=== PATIENT | female | born 1940 | race Caucasian/White ===

== ENCOUNTER 2020-09-29 13:53 | Outpatient (REF) | payer MEDICARE, SELFPAY ==
--- NOTE | ~2020-09-29 | MM_ITS ---
EXAMINATION: MM SCREENING DIGITAL BREAST TOMOSYNTHESIS, BILATERAL CLINICAL INFORMATION: Screening. Asymptomatic. No known family history breast cancer. The lifetime risk of breast cancer based on the Tyrer-Cuzick Model is 3%. COMPARISON: Mammography: 09/07/2019, 6 09/02/2018, 08/06/2017, 07/24/2016 TECHNIQUE: Digital breast tomosynthesis is performed in both the craniocaudal and mediolateral oblique views along with computer-aided detection (CAD). Synthesized 2D images are generated from the tomosynthesis. Additional left MLO view is provided. FINDINGS: The breasts are extremely dense, which lowers the sensitivity of mammography (ACR BI-RADS breast composition Category d). The breasts are slightly symmetrically smaller and slightly symmetrically increased in density consistent with mild weight loss. Parenchymal pattern is otherwise similar to prior studies. There is no significant mass or architectural abnormality. No abnormal calcifications. The axilla and skin contours are unremarkable. Results discussed with patient at time of visit. MM/MM tomosynthesis screening BI IMPRESSION: No mammographic evidence of malignancy. ASSESSMENT: BI-RADS 2: Benign RECOMMENDATION: Routine annual mammography screening. This patient's information was entered into a reminder system with a target due date for their next mammogram.
== END 2020-09-29 13:54 | disposition home or self-care (01) ==
LOC: HO.MAMMO 13:53
PROVIDERS: PCP Internal Medicine; Visit Provider Internal Medicine
DX: Z12.31 Encounter for screening mammogram for malignant neoplasm of breast (principal)
CPT/HCPCS: 77063; 77067

== ENCOUNTER 2021-10-17 11:00 | Outpatient (REF) | payer MEDICARE, SELFPAY ==
--- NOTE | ~2021-10-17 | MM_ITS ---
EXAMINATION: MM SCREENING DIGITAL BREAST TOMOSYNTHESIS, BILATERAL CLINICAL INFORMATION: Screening. Asymptomatic. The lifetime risk of breast cancer based on the Tyrer-Cuzick Model is 2%. COMPARISON: Mammography: 09/29/2020, 09/07/2019, 09/02/2018, 08/06/2017 TECHNIQUE: Digital breast tomosynthesis is performed in both the craniocaudal and mediolateral oblique views along with computer-aided detection (CAD). Synthesized 2D images are generated from the tomosynthesis. FINDINGS: The breasts are extremely dense, which lowers the sensitivity of mammography (ACR BI-RADS breast composition Category d). Breast parenchymal pattern is similar to prior studies. There is some minor shifting fibroglandular tissue as expected related to positioning from year to year. There is no interval mass or architectural abnormality. No abnormal calcifications. The axilla and skin contours are unremarkable. Results are reviewed with the patient at time of visit. MM/MM tomosynthesis screening BI IMPRESSION: No mammographic evidence of malignancy. ASSESSMENT: BI-RADS 1: Negative RECOMMENDATION: Routine annual mammography screening. This patient's information was entered into a reminder system with a target due date for their next mammogram.
== END 2021-10-17 11:01 | disposition home or self-care (01) ==
LOC: HO.MAMMO 11:00
PROVIDERS: PCP Internal Medicine; Visit Provider Internal Medicine
DX: Z12.31 Encounter for screening mammogram for malignant neoplasm of breast (principal)
CPT/HCPCS: 77063; 77067

== ENCOUNTER 2022-10-21 08:50 | Outpatient (REF) | payer MEDICARE, SELFPAY ==
--- NOTE | ~2022-10-21 | MM_ITS ---
EXAMINATION: MM SCREENING DIGITAL BREAST TOMOSYNTHESIS, BILATERAL CLINICAL INFORMATION: Screening. Asymptomatic. The lifetime risk of breast cancer based on the Tyrer-Cuzick Model is 2%. COMPARISON: Mammography: 10/17/2021, 09/29/2020, and exams dating back to 2012. TECHNIQUE: Digital breast tomosynthesis is performed in both the craniocaudal and mediolateral oblique views along with computer-aided detection (CAD). Synthesized 2D images are generated from the tomosynthesis. FINDINGS: The breasts are extremely dense, which lowers the sensitivity of mammography (ACR BI-RADS breast composition Category d). There are no suspicious masses, suspicious calcifications, or areas of architectural distortion. The parenchymal pattern is overall unchanged from prior exams. Tomographic imaging is unremarkable. MM/MM tomosynthesis screening BI IMPRESSION: No mammographic evidence of malignancy. ASSESSMENT: BI-RADS BI-RADS 1 - Negative RECOMMENDATION: Routine annual mammography screening. 1 year F/U This examination should not preclude the clinical evaluation of a suspicious palpable abnormality. This patient's information was entered into a reminder system with a target due date for their next mammogram.
== END 2022-10-21 08:51 | disposition home or self-care (01) ==
LOC: HO.MAMMO 08:50
PROVIDERS: Visit Provider Internal Medicine
DX: Z12.31 Encounter for screening mammogram for malignant neoplasm of breast (principal)
CPT/HCPCS: 77063; 77067

== ENCOUNTER → 2022-10-21 09:00 | Outpatient (BNV) | payer MEDICARE, SELFPAY | PROVIDERS: Visit Provider Radiology Diagnostic Radiology | DX: Z12.31 Encounter for screening mammogram for malignant neoplasm of breast (principal) | CPT/HCPCS: 77063; 77067 ==

== ENCOUNTER 2023-10-29 08:16 | Outpatient (REF) | payer MEDICARE, SELFPAY ==
--- NOTE | ~2023-10-29 | MM_ITS ---
EXAMINATION: MM SCREENING DIGITAL BREAST TOMOSYNTHESIS, BILATERAL CLINICAL INFORMATION: Screening. Asymptomatic. History of left breast excisional benign biopsies x2. COMPARISON: Mammography: 10/21/2022, 10/17/2021, 09/29/2020, and exams dating back to 2013. TECHNIQUE: Digital breast tomosynthesis is performed in both the craniocaudal and mediolateral oblique views along with computer-aided detection (CAD). Synthesized 2D images are generated from the tomosynthesis. FINDINGS: The breasts are extremely dense, which lowers the sensitivity of mammography (ACR BI-RADS breast composition Category d). There are no suspicious masses, suspicious grouped calcifications, or areas of architectural distortion in either breast. The parenchymal pattern is stable from prior exams. There is no skin or axillary abnormality. MM/MM tomosynthesis screening BI IMPRESSION: No mammographic evidence of malignancy. ASSESSMENT: BI-RADS BI-RADS 1 - Negative RECOMMENDATION: Routine annual mammography screening. 1 year F/U This examination should not preclude the clinical evaluation of a suspicious palpable abnormality. This patient's information was entered into a reminder system with a target due date for their next mammogram. Electronically signed by: Paul Barba MD 10/29/2023 01:01 PM EDT
== END 2023-10-29 08:17 | disposition home or self-care (01) ==
LOC: HO.MAMMO 08:16
PROVIDERS: PCP Internal Medicine; Visit Provider Internal Medicine
DX: Z12.31 Encounter for screening mammogram for malignant neoplasm of breast (principal)
CPT/HCPCS: 77063; 77067

== ENCOUNTER → 2023-10-29 08:30 | Outpatient (BNV) | payer MEDICARE, SELFPAY | PROVIDERS: PCP Internal Medicine; Visit Provider Radiology Diagnostic Radiology | DX: Z12.31 Encounter for screening mammogram for malignant neoplasm of breast (principal) | CPT/HCPCS: 77063; 77067 ==

== ENCOUNTER 2024-11-20 08:23 | Outpatient (REF) | payer MEDICARE, SELFPAY ==
--- OUTSIDE RECORDS SUMMARY | 2011-10-08 | XMS_ITS | Encounter Summary ---
Author Organization [facility] Address [address] [place] [address] Phone Care Team Providers Care Machine Setter Sheet Metal Name Role Phone Unavailable Primary Care Provider Unavailabl e Encounter Details Date Type Department Care Team (Late st Contact Info) Description 10/08/2011 Hospital Encounter [facility],Outside Imaging [address] [place] [address] System, Provider Not In, PhD [address] [address] Social History Tobacco Use Types Packs/Day Years Used Date Smoking Tobacco: Never Smokeless Tobacco: Never Alcohol Use Standard Drinks/Week Comments Not Currently 0 (1 standard drink = 0.6 oz pur e alcohol) Child or Family Care Answer Date Record ed Do you have problems with on e of the following making it difficult for you to work, study, or receive health care? No 05/30/2021 Education Answer Date Recorded Are you interested in more education? Not on gladys e 06/01/2023 Are you concerned about learning? Not on file 06/01/2023 No 06/01/2023 No 06/01/2023 Food Answer Date Recorded Within the past 6 months we worried whether our food would run out before we got money to buy more. Never True 05/30/2021 Within the past 6 months the food we bought just didn't last and we didn't have enough money to get more. Never True Residential Stability Answer Date Recor ded What is your housing situation today? I have susana farris 05/30/2021 How many times have you moved in the past 12 mon ths? One time 05/30/2021 Paying for Meds Answer Date Recorded Do you have trouble paying for medicines? No 05/30/2021 Paying Utility Bills Answer Date Record ed Do you have trouble paying your heating or elect ricity bill? No 05/30/2021 Transportation Answer Date Recorded Has the lack of transportati on kept you from medical appointments or from getting medications? No 05/30/2021 Unemployment Answer Date Recorded Are you currently unemployed or working on a part-time or temporary basis, and looking for work? No 05/30/2021 Digital Access Answer Date Recorded No 08/05/2022 No 08/05/2022 Reliable internet access at home? Not on file 08/05/2022 Device with a working camera? Not on file Intimate Partner Violence Answer Date R ecorded Denied Basic Needs Not on file 06/16/2024 In the past 12 months have y ou been in a relationship with a person who hurts, threatens, or tries to control you? No 06/16/2024 Worried food would run out Not on file 06/16 In the past 12 months have y ou been in a relationship with a person who hurts, threatens, or tries to control you? No 06/16/2024 Education Answer Date Recorded What is the highest level of school you have completed or the highest degree you have received? Doctorate 03/15/2018 Comments No Sex and Gender Information Value Date Recorded Sex Assigned at Not on file Legal Sex Female 3:00 PM EST Gender Identity Not on file Sexual Orientation Not on file Occupation Industry Job Start Date Job End Date retired Not on file Not on file Not on file documented as of this encounter Plan of Treatment Not on file documented as of this encounter Procedures Procedure Name Priority Date/Time Associated Diagnosis Comments CT ABDOMEN/PELVIS OUTSIDE (NO INTERPRETATION) Routine 10/08/2011 12:00 AM EDT documented in this encounter Results * CT Abdomen/Pelvis Outside (No Interpretation) (10/08/2011 12:00 AM EDT) Narrative SYSTEMGENERATED, DOCUMENTATION - 05/15/2020 1:50 PM EST This study is for PACS storage only and not for interpretation. us Provider Not In System PhD IMG OUTSIDE IMAGING W /OUT INTERPRETATION Final Result documented in this encounter Visit Diagnoses Not on filedocumented in this encounter Additional Health Concerns Infection Onset Date Last Indicated Resolved Time CoV-Exposed Comment:Recent close contact 02/25/2020 02/25/2020 03/10/2020 1:24 AM EST CoV-Exposed Comment:Recent close contact documented in the COVID-19 PCR/PRO order 03/07/2021 03/09/2021 03/22/2021 1:[address] documented as of this encounter Additional Source Comments The information contained in this document represents components of the legal health record. It is not the complete legal health record.[facility]
--- NOTE | ~2024-11-20 | MM_ITS ---
EXAMINATION: MM SCREENING DIGITAL BREAST TOMOSYNTHESIS, BILATERAL CLINICAL INFORMATION: Screening. Asymptomatic. COMPARISON: Mammography: Comparison is made with available priors TECHNIQUE: Digital breast mammography with tomosynthesis is performed in both the craniocaudal and mediolateral oblique views along with computer-aided detection (CAD). FINDINGS: The breasts are extremely dense, which lowers the sensitivity of mammography (ACR BI-RADS breast composition Category d). Bilateral Excisional biopsies. There are no significant masses, abnormal calcifications, or other abnormalities. MM/MM tomosynthesis screening BI IMPRESSION: No mammographic evidence of malignancy. ASSESSMENT: BI-RADS BI-RADS 2 - Benign Findings RECOMMENDATION: Routine annual mammography screening. 1 year F/U This examination should not preclude the clinical evaluation of a suspicious palpable abnormality. This patient's information was entered into a reminder system with a target due date for their next mammogram. Electronically signed by: Lexi Craven DO 11/22/2024 09:54 AM EDT
--- OUTSIDE RECORDS SUMMARY | 2024-11-20 08:27 | XMS_ITS | Encounter Summary ---
Author Organization [employer] [facility] Address [address] [place] [address] Phone Care Team Providers Care Medical Research Tech Name Role Phone Jeffrey Sung MD Unavailable [phone] Adam Klein MD Unavailable [phone] Francisco Javier Holcomb MD Unavailable [phone] Adelso Anderson MD Unavailable [phone] Marco Antonio Noriega MD Unavailable Unavailable Trisha Hubbard MD Primary Care Provider [phone] Trisha Hubbard MD Unavailable [phone] Encounter Details Date Type Department Care Team (Late st Contact Info) Description 12/27/2019 Procedure Pass [facility], Ct Scan - [address] [address] Social History Tobacco Use Types Packs/Day Years Used Date Smoking Tobacco: Never Smokeless Tobacco: Never Alcohol Use Standard Drinks/Week Comments Not Currently 0 (1 standard drink = 0.6 oz pur e alcohol) Education Answer Date Recorded What is the [...] on file documented as of this encounter Visit Diagnoses Not on filedocumented in this encounter Additional Health Concerns Infection Onset Date Last Indicated Resolved Time CoV-Exposed Comment:Recent close contact 02/25/2020 02/25/2020 03/10/2020 1:24 AM EST CoV-Exposed Comment:Recent close contact documented in the COVID-19 PCR/PRO order 03/07/2021 03/09/2021 03/22/2021 1:[address] Assessment Noted Time PHQ-2 Depression Total Score: 0 10/22/19 8:42 AM EDT documented as of this encounter Care Teams Medical Research Tech Relationship Specialty Start Date End Date Trisha Hubbard MD [address] [place] [address] PCP - General Internal Medicine 03/17/18 Jeffrey Sung MD [address] [place] [address] Historical LMR Provider 12/25/16 2 Adam Klein MD [address] [address] Historical LMR Provider 12/25/16 03/17/21 Francisco Javier Holcomb MD [address] [place] [address] Historical LMR Provider 12/25/16 2 Adelso Anderson MD [address] [place] [address] [place] [address] Gastroenterology 03/15/18 Marco Antonio Noriega MD Ophthalmology 03/15/18 Trisha Hubbard MD [address] [place] [address], [address] [place] [address] [email or web address] Insurance Assigned Provider 06/14/23 documented as of this encounter Additional Source Comments The information contained in this document represents components of the legal health record. It is not the complete legal health record.[facility]
--- OUTSIDE RECORDS SUMMARY | 2024-11-20 08:27 | XMS_ITS | Encounter Summary ---
Author Organization [facility] Address [address] [place] [address] Phone Care Team Providers Care Corrosion Control Specialist Name Role Phone Jeffrey Sung MD Unavailable [phone] Adam Klein MD Unavailable [phone] Francisco Javier Holcomb MD Unavailable [phone] Adelso Anderson MD Unavailable Marco Antonio Noriega MD Unavailable Unavailable Trisha Hubbard MD Primary Care Provider [phone] Trisha Hubbard MD Unavailable [phone] Encounter Details Date Type Department Care Team (Late st Contact Info) Description 12/22/2019 Procedure Pass [facility] Endoscopy Admitting Dept Virtual Department [address] [place] [address] Social History Tobacco Use Types Packs/Day Years [...] PCR/PRO order 03/07/2021 03/09/2021 03/22/2021 1:22 AM EST Assessment Noted Time PHQ-2 Depression Total Score: 0 10/22/19 8:42 AM EDT documented as of this encounter Care Teams Corrosion Control Specialist Relationship Specialty Start Date End Date Trisha Hubbard MD [address] [place] [address] PCP - General Internal Medicine 03/17/18 Jeffrey Sung MD [address] [place] [address] Historical LMR Provider 12/25/16 2 Adam Klein MD [address] [address] Historical LMR Provider 12/25/16 03/17/21 Francisco Javier Holcomb MD [address] [place] [address] Historical LMR Provider 12/25/16 2 Adelso Anderson MD [address] [place] [address] [place] [address] Gastroenterology 03/15/18 Marco Antonio Noriega MD Ophthalmology 03/15/18 Trisha Hubbard MD [address] [place] [address], [address] [place] [address] [email or web address] Insurance Assigned Provider 06/14/23 documented as of this encounter Additional Source Comments The information contained in this document represents components of the legal health record. It is not the complete legal health record.[facility]
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
--- OUTSIDE RECORDS SUMMARY | 2024-11-20 08:28 | XMS_ITS | Encounter Summary ---
Author Organization [employer] [facility] Address [address] [place] [address] Phone Care Team Providers Care Safety Tech Name Role Phone Jeffrey Sung MD Unavailable [phone] Adam Klein MD Unavailable [phone] Francisco Javier Holcomb MD Unavailable [phone] Adelso Anderson MD Unavailable [phone] Marco Antonio Noriega MD Unavailable Unavailable Trisha Hubbard MD Primary Care Provider [phone] Trisha Hubbard MD Unavailable [phone] Reason for Referral * MRI/CAT Scan - Closed Specialty Diagnoses / Procedures Referred By Ketan t Referred To Contact Radiology Diagnoses Sudden hearing loss, left Procedures MRI Brain River Gupta MD Phone: tel: fax: [email or web address] Referral ID Status Reason Start Date Expiration Date Visits Re quested Visits Authorized [id number] Closed 10/11/2020 10/11/2021 4 4 Encounter Details Date Type Department Care Team (Late st Contact Info) Description 10/11/2020 Ancillary Orders Virtual Department [address] [place] [address] River Gupta MD [address], [address] [place] [address] [email or web address] Sudden hearing loss, left Social History Tobacco Use Types Packs/Day Years Used Date Smoking Tobacco: Never Smokeless Tobacco: Never Alcohol Use Standard Drinks/Week Comments Not Currently 0 (1 standard drink = 0.6 oz pur e alcohol) Child or Family Care Answer Date Record ed Do you have problems with on e of the following making it difficult for you to work, study, or receive health care? No 06/04/2020 Education Answer Date Recorded Are you interested in help w ith more adult education (for example, completing high school, GED, job training, learning the Martiniquais language, technical skills, or developing parenting skills)? No 06/04/2020 Are you concerned about learning? Not on file 06/04/2020 Not on file 06/04/2020 Not on file 06/04/2020 Food Answer Date Recorded Within the past 6 months we worried whether our food would run out before we got money to buy more. Never True 06/04/2020 Within the past 6 months the food we bought just didn't last and we didn't have enough money to get more. Never True Paying for Meds Answer Date Recorded Do you have trouble paying for medicines? No 06/04/2020 Paying Utility Bills Answer Date Record ed Do you have trouble paying your heating or elect ricity bill? No 06/04/2020 Transportation Answer Date Recorded Has the lack of transportati on kept you from medical appointments or from getting medications? No 06/04/2020 Education Answer Date Recorded What is the [...] on file documented as of this encounter Results * MRI BRAIN WITH AND WITHOUT CONTRAST (10/24/2020 1:14 PM EDT) Anatomical Region Laterality Modality Head Magnetic Resonan ce 10/24/2020 1:51 PM EDT Impressions 10/24/2020 2:02 PM EDT 1. Minimal frontal white matter changes typical of small vessel disease. 2. Otherwise normal MRI appearance of the brain. POS [id number] Narrative 10/24/2020 2:02 PM EDT TECHNIQUE: 1.5 Neyda scanner. IAC protocol without and with IV contrast. No comparison FINDINGS: No evidence of acoustic neuroma or other IAC/CP angle mass. The visualized proximal cranial nerves are unremarkable. No signal changes indicative of ischemia, infarct, hemorrhage or a mass. No abnormal parenchymal or extra-axial enhancement. Few scattered tiny globular areas of T2 hyperintensity in the subcortical and periventricular white matter of both frontal lobes very likely related to the early changes of small vessel disease rather than demyelination. Normal ventricular size and configuration. Basilar cisterns widely patent. No signs of elevated intracranial pressure. No pituitary, pineal region or intraorbital pathology. Normal flow-voids in the major vessels of the [place] and the dural venous sinuses. No inflammatory changes in the paranasal sinuses or mastoid air cells. Procedure Note Nader Morin MD - 10/24/2020 TECHNIQUE: 1.5 Neyda scanner. IAC protocol without and with IVcontrast. No comparison FINDINGS: No evidence of acoustic neuroma or other IAC/CP angle mass. The visualizedproximal cranial nerves are unremarkable. No signal changes indicative of ischemia, infarct, hemorrhage or a mass. No abnormal parenchymal or extra-axial enhancement. Few scattered tiny globular areas of T2 hyperintensity in the subcorticaland periventricular white matter of both frontal lobes very likely relatedto the early changes of small vessel disease rather than demyelination. Normal ventricular size and configuration. Basilar cisterns widely patent. No signs of elevated intracranialpressure. No pituitary, pineal region or intraorbital pathology. Normal flow-voids in the major vessels of the [place] and thedural venous sinuses. No inflammatory changes in the paranasal sinuses or mastoid air cells. IMPRESSION: 1. Minimal frontal white matter changes typical of small vessel disease. 2. Otherwise normal MRI appearance of the brain. POS [id number] us River Gupta MD IMG MR HEAD/NECK Final R esult documented in this encounter Visit Diagnoses Diagnosis Sudden hearing loss, left Sudden hearing loss, left documented in this encounter Additional Health Concerns Infection Onset Date Last Indicated Resolved Time CoV-Exposed Comment:Recent close contact documented in the COVID-19 PCR/PRO order 03/07/2021 03/09/2021 03/22/2021 1:[address] Assessment Noted Time PHQ-2 Depression Total Score: 0 10/22/19 8:42 AM EDT documented as of this encounter Care Teams Safety Tech Relationship Specialty Start Date End Date Trisha Hubbard MD [address] [place] [address] PCP - General Internal Medicine 03/17/18 Jeffrey Sung MD [address] [place] [address] Historical LMR Provider 12/25/16 2 Adam Klein MD [address] [address] Historical LMR Provider 12/25/16 03/17/21 Francisco Javier Holcomb MD [address] [place] [address] Historical LMR Provider 12/25/16 2 Adelso Anderson MD [address] [place] [address] [address] [place] [address] Gastroenterology 03/15/18 Marco Antonio Noriega MD Ophthalmology 03/15/18 Trisha Hubbard MD [address] [place] [address], [address] [place] [address] [email or web address] Insurance Assigned Provider 06/14/23 documented as of this encounter Additional Source Comments The information contained in this document represents components of the legal health record. It is not the complete legal health record.[facility]
--- OUTSIDE RECORDS SUMMARY | 2024-11-20 08:28 | XMS_ITS | Patient Health Record ---
Author Organization [facility] Address [address] [place] [address] Care Team Providers Care Foam Tank Laminator Name Role Phone Trisha Hubbard M.D. Primary Care Provider Unav ailable Adelso Anderson Unavailable [phone] Allergies Allergen (clinical drug ingredient) Drug/Non Drug Allergy documented on EMR Reaction Allergy Type Onset Date Status omeprazole Prilosec Unknown Drug Allergy Active certain shampoos and soaps (uncoded) rash Allergy Active Reason For Referral No Information Medications Medication SIG (Take, Route, Frequency, Duration) Notes Start Date End Date Status Probiotic 250 MG as directed Orally o nce a day Active Vitamin D-3 2000iu 1 capsule Orally Onc e a day Active Flaxseed Oil 1200 MG as directed Orally once a day Active Colace 100 MG 1 capsule as needed Orally Once a day/ as needed Active Nystatin 879273 UNIT/ML 4 ml Mouth/Throa t TID for 30 day(s) 11/04/2018 Active Prilosec 20 MG 1 Orally Once or twi ce a day for reflux for 10 day(s) 07/02/2019 Active Vitamin C11-Ivgyx Acid 500-400 MCG Orally Active Cranberry Extract 200 MG as directed Ora lly once a day Active Zantac 75 75 MG 1 tablet as needed O rally Twice a day/prn Active Immunizations Vaccine Route Administration Date Status Comme nts Influenza Unknown 10/15/2016 Administered Influenza Unknown 10/30/2018 Administered Social History Alcohol Screen Question Answer Notes Did you have a drink containing alcohol in the p ast year? No Points 0 Interpretation Negative Section Notes: Nonsmoker; 1 glass of red wi ne QD Nonsmoker; 1 glass of red wi ne QD Nonsmoker; 1 glass of red wi ne QD Nonsmoker; 1 glass of red wi ne QD Nonsmoker; 1 glass of red wi ne QD Nonsmoker; no sig. alcohol Nonsmoker; no sig. alcohol Nonsmoker; no sig. 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) Active confirmed Problem 80523256 Constipation, unspecified constipation type (K59.00) Active confirmed Problem 004642188 Abdominal pain, left lower quadrant (R10.32) Active confirmed Problem 86457672 Diarrhea, unspecified type (R19.7) Active confirmed Problem 34846411 Irritable bowel syndrome with both constipation and diarrhea (K58.2) Active confirmed Problem 808241672 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 confirmed Plan Of Treatment Pending Test Test Name Order Date LIVER PROFILE 09/04/2017 LIVER PROFILE 09/11/2016 LIVER PROFILE 09/12/2011 AMYLASE 09/12/2011 LIPASE 09/12/2011 FREE T4 (FT4) 09/19/2011 TSH (THYROID STIMULATING HORMONE) 2011 IRON + IBC (FE) 09/04/2017 FERRITIN 09/04/2017 CRP 09/11/2016 CBC w DIFF 09/12/2011 CBC w DIFF 09/04/2017 CBC with MANUAL DIFFERENTIAL 09/11/2016 SED RATE (ESR) 09/11/2016 PROTHROMBIN TIME (PT, INR) 09/04/2017 HEPATITIS A,B,C PROFILE 09/04/2017 CLOSTRIDIUM DIFF TOXIN A&B (C DIFF) 07/2016 STOOL WBC 09/11/2016 [id number] (A1A) 09/04/2017 MITOCHONDRIAL AB 09/04/2017 SMOOTH MUSCLE ANTIBODIES 09/04/2017 GIARDIA AG, STOOL EIA 09/11/2016 GIARDIA AG, STOOL EIA 09/12/2011 OVA & PARASITES (O&P) 09/11/2016 OVA & PARASITES (O&P) 09/12/2011 CULTURE, STOOL 09/11/2016 CT ABD & PELVIS WITH PO CONT ONLY 2011 FLUOR. ANTINUCLEAR AB SCREEN (REID) 08/09 Future Test Test Name Order Date UPPER GI ENDOSCOPY 12/27/2014 COLONOSCOPY 12/27/2014 UPPER GI ENDOSCOPY 11/04/2018 Insurance Providers Payer Name Payer Address Payer Phone Subscriber Number Group Number Insured Name Patient Relationship to Insured Coverage Start Date Coverage End Date MEDICARE OF [place] [address] [place] [address] [phone] [id number] BRENDA SUH Self - patient is the insured [employer] ATT[employer] CLAIMS [address] [place] [address] [phone] [id number] BRENDA SUH Self - patient is the insured Medical (General) History Medical History History ICD Code Irritable bowel syndrome and abdominal discomfort, with complaints dating back to the for which she underwent an upper endoscopy with Dr. Vargas in 1986. At that time he described the diagnosis of presumed irritable bowel syndrome. Back pain--- s/p fall Denies MT,DM,CVA,Lung disease,renal dise ase Herniated disc in her neck, for which marisabel alford has not had surgery Neg. colonoscopy in 1998, 27 08, and in 05/2015--diverticulosis, internal hemorrhoids Neg CT of abd/pelvis in 2011 except constipaion, and degenerative lumbar disc disease/spondylosis--no evidence of any significant intra-abdominal disease She had an upper endoscopy i november that revealed a tiny area of Paredes's mucosa, but no evidence of any dysplasia nor any significant esophagitis, gastritis, H. pylori, nor celiac disease. She had some exacerbation of her irritable bowel syndrome in 2011 after a trip to [place]-she had an acute gastroenteritis there-she had stool specimens that were negative for Giardia, but I did give her an empiric 5 day course of Flagyl in 2011 She has had a negative abdom inal ultrasounds in the past other than a small liver hemangioma EGD in 05/2015--small HH, small area of B arrett's--no dysplasia Hyponatremia-seeing Dr. Quiroz Burning mouth syndrome -has seen Dr. Gupta and an ENT MD at 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 Shay 201 6
--- OUTSIDE RECORDS SUMMARY | 2024-11-20 08:28 | XMS_ITS | Encounter Summary ---
Author Organization [facility], Address [address] [place] [address] Phone Care Team Providers Care Book Canvasser Name Role Phone Trisha Hubabrd MD Primary Care Provider [phone] Encounter Details Date Type Department Care Team (Late st Contact Info) Description 04/13/2024 Documentation Only [facility] [address] [place] [address] Leslie Li [address] [place] [address] Social History Tobacco Use Types Packs/Day Years Used Date Smoking Tobacco: Never Alcohol Use Standard Drinks/Week Comments Yes 0 (1 standard drink = 0.6 oz pur e alcohol) Comments Unknown Sex and Gender Information Value Date Recorded Sex Assigned at Not on file Legal Sex Female 4:33 PM EST Gender Identity Not on file Sexual Orientation Not on file documented as of this encounter Plan of Treatment Upcoming Encounters Date Type Department Care Team (Late st Contact Info) Description 05/23/2025 1:30 PM EDT Office Visit [facility] [address] [place] [address] Terrell Thomas MD [address] [place] [address] [place] [address] documented as of this encounter Visit Diagnoses Not on filedocumented in this encounter Care Teams Book Canvasser Relationship Specialty Start Date End Date Trisha Hubbard MD [address] [place] [address], [address] [place] [address] PCP - General 01/12/19 documented as of this encounter
--- OUTSIDE RECORDS SUMMARY | 2024-11-20 08:28 | XMS_ITS | Encounter Summary ---
Author Organization [facility], Address [address] [place] [address] Phone Care Team Providers Care Manugrapher Name Role Phone Trisha Hubbard MD Primary Care Provider [phone] Encounter Details Date Type Department Care Team (Late st Contact Info) Description 04/13/2024 Documentation Only [facility] [address] [place] [address] Leslie Li [address] [place] [address] Social History Tobacco Use Types [...] Visit [facility] [address] [place] [address] Terrell Thomas MD [address] [place] [address] [place] [address] documented as of this encounter Visit Diagnoses Not on filedocumented in this encounter Care Teams Manugrapher Relationship Specialty Start Date End Date Trisha Hubbard MD [address] [place] [address], [address] [place] [address] PCP - General 01/12/19 documented as of this encounter
--- OUTSIDE RECORDS SUMMARY | 2024-11-20 08:28 | XMS_ITS | Encounter Summary ---
Author Organization [facility], Address [address] [place] [address] Phone Care Team Providers Care Investor Relations Specialist Name Role Phone Trisha Hubbard MD Primary Care Provider [phone] Encounter Details Date Type Department Care Team (Late st Contact Info) Description 04/13/2024 Documentation Only [facility] [address] [place] [address] Leslie Li [address] [place] [address] Social History Tobacco Use Types [...] Visit [facility] [address] [place] [address] Terrell Thomas MD [address] [place] [address] [place] [address] documented as of this encounter Visit Diagnoses Not on filedocumented in this encounter Care Teams Investor Relations Specialist Relationship Specialty Start Date End Date Trisha Hubbard MD [address] [place] [address], [address] [place] [address] PCP - General 01/12/19 documented as of this encounter
--- OUTSIDE RECORDS SUMMARY | 2024-11-20 08:28 | XMS_ITS | Encounter Summary ---
Author Organization [facility] Address [address] [place] [address] Phone Care Team Providers Care Toe Stapler Name Role Phone Jeffrey Sung MD Unavailable [phone] Adam Klein MD Unavailable [phone] Francisco Javier Holcomb MD Unavailable [phone] Adelso Anderson MD Unavailable [phone] Marco Antonio Noriega MD Unavailable Unavailable Trisha Hubbard MD Primary Care Provider [phone] Trisha Hubbard MD Unavailable [phone] Encounter Details Date Type Department Care Team (Latest Contact Info) Description 12/08/2019 Transcribe Orders [address] [place] [address] Jeffrey Kent MD 10 [facility] 2 [place] [address] [email or web address] Change in bowel habits (Primary Dx) Social History Tobacco Use Types Packs/Day Years [...] documented as of this encounter Results * Immunoglobulin A (12/08/2019 10:55 AM EDT) IgA 100 70 - 400 mg/dL [facility] Blood 12/08/2019 10:5 5 AM EDT 12/08/2019 10:57 AM EDT Jeffrey Kent MD LAB BLOOD ORDERABLES Final Result Performing Organization Address [facility] de Phone Number [address] [address] * Tissue transglutaminase IgA (12/08/2019 10:55 AM EDT) TTG IGA ANTIBODY <1.2 <4.0 (Negative) U/mL [facility] Blood 12/08/2019 10:5 5 AM EDT 12/08/2019 10:57 AM EDT Jeffrey Kent MD LAB BLOOD ORDERABLES Final Result Performing Organization Address [facility] de Phone Number [facility] MED[facility] [address] [address] [place] [address] documented in this encounter Visit Diagnoses Diagnosis Change in bowel habits- Primary Other symptoms involving digestive system documented in this encounter Additional Health Concerns Infection Onset Date Last Indicated Resolved Time CoV-Exposed Comment:Recent close contact 02/25/2020 02/25/2020 03/10/2020 1:24 AM EST CoV-Exposed Comment:Recent close contact documented in the COVID-19 PCR/PRO order 03/07/2021 03/09/2021 03/22/2021 1:[address] Assessment Noted Time PHQ-2 Depression Total Score: 0 10/22/19 8:42 AM EDT documented as of this encounter Care Teams Toe Stapler Relationship Specialty Start Date End Date Trisha Hubbard MD [address] [place] [address] PCP - General Internal Medicine 03/17/18 Jeffrey Sung MD [address] [place] [address] Historical LMR Provider 12/25/16 2 Adam Klein MD [address] [place] [address] Historical LMR Provider 12/25/16 03/17/21 Francisco Javier Holcomb MD [address] [place] [address] Historical LMR Provider 12/25/16 2 Adelso Anderson MD [address] [place] [address] [place] [address] Gastroenterology 03/15/18 Marco Antonio Noriega MD Ophthalmology 03/15/18 Trisha Hubbard MD [address] [place] [address] Insurance Assigned Provider 06/14/23 documented as of this encounter Additional Source Comments The information contained in this document represents components of the legal health record. It is not the complete legal health record.[facility]
--- OUTSIDE RECORDS SUMMARY | 2024-11-20 08:28 | XMS_ITS | Encounter Summary ---
Author Organization [facility] Address [address] [place] [address] Phone Care Team Providers Care Budget Engineer Name Role Phone Unknown, Unknown Primary Care Provider Jeffrey Brown MD Primary Care Provider [phone] Jeffrey Sung MD Unavailable [phone] Adam Klein MD Unavailable [phone] Francisco Javier Holcomb MD Unavailable [phone] Adelso Anderson MD Unavailable [phone] Marco Antonio Noriega MD Unavailable Unavailable Trisha Hubbard MD Primary Care Provider [phone] Trisha Hubbard MD Unavailable [phone] Encounter Details Date Type Department Care Team (Late st Contact Info) Description 06/10/2016 Procedure Pass [facility], Main [address] [address] Social History Tobacco Use Types Packs/Day Years Used Date Smoking Tobacco: Never Alcohol Use Standard Drinks/Week Comments Yes 6 (1 standard drink = 0.6 oz pur e alcohol) Comments No Sex and Gender Information Value [...] E ST documented as of this encounter Care Teams Budget Engineer Relationship Specialty Start Date End Date Unknown, Unknown, MD PCP - General 05/30/16 10/29/16 Jeffrey Sung MD PCP - General Internal Medicine 10/30/16 03/16/18 Trisha Hubbard MD [address] [place] [address] PCP - General Internal Medicine 03/17/18 Jeffrey Sung MD [address] [place] [address] Historical LMR Provider 12/25/16 2 Adam Klein MD [address] [address] Historical LMR Provider 12/25/16 03/17/21 Francisco Javier Holcomb MD [address] [place] [address] Historical LMR Provider 12/25/16 2 Adelso Anderson MD [address] [place] [address] [address] [place] [address] Gastroenterology 03/15/18 Marco Antonio Noriega MD Ophthalmology 03/15/18 Trisha Hubbard MD [address] [place] [address], [address] [place] [address] [email or web address] Insurance Assigned Provider 06/14/23 documented as of this encounter Additional Source Comments The information contained in this document represents components of the legal health record. It is not the complete legal health record.[facility]
--- OUTSIDE RECORDS SUMMARY | 2024-11-20 08:28 | XMS_ITS | Clinical Summary ---
Author Organization [facility], Address [address] [facility] [address] [place] [address] Phone Care Team Providers Care Contract Modeler Name Role Phone Trisha Hubbard MD Primary Care Provider [phone] Allergies Active Allergy Reactions Criticality Noted Date Comments Diazepam Nausea And Vomiting 12/20/2019 Latex Hives 12/20/2019 Nitrofurantoin GI intolerance,Other (see comments) 11/07/2020 Other Rash Low 09/18/2016 Ghanaian oil Phenytoin Sodium Extended Nausea And Vomiting 0 03/15/2018 Medications cholecalciferol (VITAMIN D-3) 25 MCG (1000 UT) tablet Take 1 capsule by mouth 1 (one) time each day Active cyancobalamine (VITAMIN B-12) 500 MCG tablet Take 500 mcg by mouth 1 (one) time each day Active Probiotic Product (ALIGN PO) Take by mouth Active Cranberry (THERACRAN PO) Take by mouth A ctive FLAXSEED, LINSEED, PO Take by mouth Acti ve estradiol (ESTRACE) 0.1 MG/GM vaginal cream 1 Active Docusate Sodium (DSS) 100 MG capsule Take 100 mg by mouth if needed Active desonide (DESOWEN) 0.05 % cream Apply 1 application topically twice a day 2 Active pimecrolimus (ELIDEL) 1 % cream Apply topically twice a day 2 Active Active Problems Problem Noted Date Diagnosed Date 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 Hyponatremia 01/10/2020 Immunizations Immunization Administration Dates Next Due Influenza Split High Dose Preservative Free IM 0 11/19/2021 Influenza Vaccine, Quadrivalent, Adjuvanted 10/09 Influenza, Unspecified 12/04/2020 Pfizer SARS-COV-2 04/21/2020,03/31/2020 Pneumococcal Polysaccharide 03/10/2011 Td 03/10/2009 Tdap 03/10/2012 Zoster 06/08/2017,03/10/2010 Family History Medical History Relation Comments Cancer Child Daughter/Thyroid Heart disease Father Stroke Father Relation Status Comments Child Father Mother Social History Tobacco Use Types Packs/Day Years Used Date Smoking Tobacco: Never Alcohol Use Standard Drinks/Week Comments Yes 0 (1 standard drink = 0.6 oz pur e alcohol) Comments Unknown Sex and Gender Information Value Date Recorded Sex Assigned at Not on file Legal Sex Female 4:33 PM EST Gender Identity Not on file Sexual Orientation Not on file Last Filed Vital Signs Vital Sign Reading Time Taken Comments Blood Pressure 110/60 11/26/2018 12:00 PM EDT Pulse - - Temperature - - Respiratory Rate - - Oxygen Saturation - - Inhaled Oxygen Concentration - - Weight 45.4 kg (100 lb) 11/26/2018 12:00 PM EDT Height 157.5 cm (5' 2 ) 11/26/2018 12:00 PM EDT Body Mass Index 18.29 11/26/2018 12:00 PM EDT Plan of Treatment Upcoming Encounters Date Type Department Care Team (Late st Contact Info) Description 05/23/2025 1:30 PM EDT Office Visit [facility], [address] [place] [address] Terrell Thomas MD [address] [place] [address] [place] [address] Health Maintenance Due Date Last Done Comments Pneumococcal Vaccine: 50+ Years (2 of 2 - PCV) 03/10/2012 03/10/2011 Influenza Vaccine (#1) 2024 2, 12/04/2020, 10/29/2019 Pneumococcal Vaccine: Peds (0 to 5 Years) and At-Risk Patients (6 to 49 Years) Discontinued 03/10/2011 Hepatitis B Vaccine Aged Out No longe r eligible based on patient's age to complete this topic Insurance Medicare [facility] Care Teams Contract Modeler Relationship Specialty Start Date End Date Trisha Hubbard MD [address] [place] [address], [address] [place] [address] PCP - General 01/12/19
--- OUTSIDE RECORDS SUMMARY | 2024-11-20 08:28 | XMS_ITS | Encounter Summary ---
Author Organization [facility] Address [address] [place] [address] Phone Care Team Providers Care Nuts And Bolts Assembler Name Role Phone Jeffrey Sung MD Unavailable [phone] Adam Klein MD Unavailable [phone] Francisco Javier Holcomb MD Unavailable [phone] Adelso Anderson MD Unavailable [phone] Marco Antonio Noriega MD Unavailable Unavailable Trisha Hubbard MD Primary Care Provider [phone] Trisha Hubbard MD Unavailable [phone] Encounter Details Date Type Department Care Team (Late st Contact Info) Description 10/11/2020 Procedure Pass [facility], [address] [place] [address] Social History Tobacco Use Types Packs/Day Years [...] high school, GED, job training, learning the Bhut[place] language, technical skills, or developing parenting skills)? [...] on file documented as of this encounter Last Filed Vital Signs Vital Sign Reading Time Taken Comments Blood Pressure - - Pulse - - Temperature - - Respiratory Rate - - Oxygen Saturation - - Inhaled Oxygen Concentration - - Weight 45.4 kg (100 lb) 10/11/2020 1:13 PM EDT Height 154.9 cm (5' 1 ) 10/11/2020 1:13 PM EDT Body Mass Index 18.89 10/11/2020 1:13 PM EDT documented in this encounter Plan of Treatment Not on [...] documented as of this encounter Care Teams Nuts And Bolts Assembler Relationship Specialty Start Date End Date Trisha Hubbard MD [address] [place] [address] PCP - General Internal Medicine 03/17/18 Jeffrey Sung MD [address] [place] [address] Historical LMR Provider 12/25/162 2 Adam Klein MD [address] [address] Historical LMR Provider 12/25/16 03/17/21 Francisco Javier Holcomb MD [address] [place] [address] Historical LMR Provider 12/25/16 2 Adelso Anderson MD [address] [place] [address] [place] [address] Gastroenterology 03/15/18 Marco Antonio Noriega MD Ophthalmology 03/15/18 Trisha Hubbard MD [address] [place] [address] Insurance Assigned Provider 06/14/23 documented as of this encounter Additional Source Comments The information contained in this document represents components of the legal health record. It is not the complete legal health record.[facility]
--- OUTSIDE RECORDS SUMMARY | 2024-11-20 08:29 | XMS_ITS | Encounter Summary ---
Author Organization [facility] Address [address] [place] [address] Care Team Providers Care Subassembler Name Role Phone Physician, Pcp Unknown Primary Care Provider Perlita vailable Encounter Details Date Type Department Care Team (Late st Contact Info) Description 11/19/[address] [facility] - Main Lab [address] [place] [address] Gunnar Fung MD [address] [facility] [address] [place] [address] Gross hematuria Social History Tobacco Use Types Packs/Day Years Used Date Smoking Tobacco: Never Assessed Comments Unknown Sex and Gender Information Value Date Recorded Sex Assigned at Not on file Legal Sex Female 10:28 PM EST Gender Identity Not on file Sexual Orientation Not on file documented as of this encounter Plan of Treatment Pending Results Name Type Priority Associated Diagnoses Date /Time Non-gynecologic cytology Pathology and Cytology Routine Gross hematuria 11/10/2024 12:00 AM EDT documented as of this encounter Visit Diagnoses Diagnosis Gross hematuria documented in this encounter Care Teams Subassembler Relationship Specialty Start Date End Date Physician, Pcp Unknown PCP - General 11/10/24 documented as of this encounter
--- OUTSIDE RECORDS SUMMARY | 2024-11-20 08:29 | XMS_ITS | Encounter Summary ---
Author Organization [facility] Address [address] [place] [address] Care Team Providers Care Senior Marketing Manager Name Role Phone Physician, Pcp Unknown Primary Care Provider Perlita vailable Encounter Details Date Type Department Care Team (Late st Contact Info) Description 11/10/2024 Lab Requisition [facility] - Main Lab [address] [facility] [place] [address] Gunnar Fung MD [address] [facility] [address] [place] [address] Gross hematuria Social History Tobacco Use Types [...] cytology Pathology and Cytology Routine Gross hematuria 10/29/2024 12:00 AM EDT documented as of this encounter Visit Diagnoses Diagnosis Gross hematuria documented in this encounter Care Teams Senior Marketing Manager Relationship Specialty Start Date End Date Physician, Pcp Unknown PCP - General 11/10/24 documented as of this encounter
--- OUTSIDE RECORDS SUMMARY | 2024-11-20 08:29 | XMS_ITS | Clinical Summary ---
Author Organization [facility] Address [address] [place] [address] Phone Care Team Providers Care Hydraulic Press Operator Name Role Phone Physician, Pcp Unknown Primary Care Provider Perlita vailable Encounters Date Type Department Care Team Description 11/19/2024 Lab Requisition [facility] Lab [address] [place] [address] Gunnar Fung MD Gross hematuria 11/10/2024 Lab Requisition [facility] Lab [address] [place] [address] Gunnar Fung MD Gross hematuria from Last 3 Months Social History Tobacco Use Types Packs/Day Years Used Date Smoking Tobacco: Never Assessed Comments Unknown Sex and Gender Information Value Date Recorded Sex Assigned at Not on file Legal Sex Female 10:28 PM EST Gender Identity Not on file Sexual Orientation Not on file Plan of Treatment Health Maintenance Due Date Last Done Comments DTaP,Tdap,and Td Vaccines (1 - Tdap) 1959 Pneumococcal Vaccine: 50+ Ye ars (1 of 1 - PCV) 09/11/1991 Zoster Vaccines (1 of 2) 09/11/1991 RSV Immunization Adult Patie nts (1 - 1-dose 75+ series) 2016 Depression Screening 03/10/2024 Falls Risk Assessment 03/15/2024 Medicare Annual Wellness Visit 03/15/2024 Osteoporosis Screening (Bone Density Screening) 03/15/2024 Social Influencers of Health Screening 03/15/2024 COVID-19 Vaccine (1 - 2023-2 5 season) 2024 Influenza Vaccine (#1) 2024 HIB Vaccines Aged Out No longer eligi ble based on patient's age to complete this topic HPV Vaccines Aged Out No longer eligi ble based on patient's age to complete this topic Hepatitis A Vaccines Aged Out No long er eligible based on patient's age to complete this topic Hepatitis B Vaccines Aged Out No long er eligible based on patient's age to complete this topic IPV Vaccines Aged Out No longer eligi ble based on patient's age to complete this topic MMR Vaccines Aged Out No longer eligi ble based on patient's age to complete this topic Meningococcal ACWY Vaccine Aged Out N o longer eligible based on patient's age to complete this topic Meningococcal B Vaccine Aged Out No l onger eligible based on patient's age to complete this topic RSV Immunization Patients Un myke 20 months Aged Out No longer eligible b ased on patient's age to complete this topic Varicella Vaccines Aged Out No longer eligible based on patient's age to complete this topic Insurance MEDICARE BLUE CROSS - [place] MEDICARE ADVANTAGE Care Teams Hydraulic Press Operator Relationship Specialty Start Date End Date Physician, Pcp Unknown PCP - General 11/10/24
--- OUTSIDE RECORDS SUMMARY | 2024-11-20 08:29 | XMS_ITS | Encounter Summary ---
Author Organization [facility] Address [id number] [place] [address] Care Team Providers Care Systems Planner Name Role Phone Physician, Pcp Unknown Primary Care Provider Perlita vailable Encounter Details Date Type Department Care Team (Late st Contact Info) Description 03/15/2024 Lab Requisition [facility] [address] [facility] [place] [address] Gunnar Fung MD [address] [place] [address] Gross hematuria Social History Tobacco Use Types [...] Procedure Name Priority Date/Time Associated Diagnosis Comments AP OUTSIDE CONSULT Routine 02/27/2024 12 :00 AM EST Gross hematuria documented in this encounter Results * Anatomic pathology outside consult (02/27/2024 12:00 AM EST) Final Diagnosis Urine, Voided: Negative for high grade urothelial carcinoma. Acute inflammation present. 03/16/2024 9:56 AM EST [facility] Clinical Information Gross hematuria R31.0 [id number] urine cytology with reflex 03/16/2024 9:56 AM EST [facility] Gross Description A. Urine, Voided, : [id number] Rec'd 1 TP cyto. 03/16/2024 9:56 AM EST [facility] Disclaimer Unless otherwise specified, all tissue is 10% NB formalin fixed and paraffin embedded. Technical pathology services provided by [facility] at [address] [facility] [address], [place] [address] (CLIA #[id number]/Sudheer Voss MD, Supervisor [employer]ing [employer]) 03/16/2024 9:56 AM EST [facility] Tissue Urine specimen from urethra / Unknown 02/27/2024 03/15/2024 8:05 AM EST us Gunnar Fung MD LAB PATHOLOGY ORDERABLES Fi nal Result [facility] [address] [place] [address], documented in this encounter Visit Diagnoses Diagnosis Gross hematuria documented in this encounter Care Teams Systems Planner Relationship Specialty Start Date End Date Physician, Pcp Unknown PCP - General 11/10/24 documented as of this encounter
--- OUTSIDE RECORDS SUMMARY | 2024-11-20 08:29 | XMS_ITS | Encounter Summary ---
Author Organization [facility] Address [address] [place] [address] Phone Care Team Providers Care Spooling Machine Operator Name Role Phone Jeffrey Sung MD Unavailable [phone] Adam Klein MD Unavailable [phone] Francisco Javier Holcomb MD Unavailable [phone] Adelso Anderson MD Unavailable [phone] Marco Antonio Noriega MD Unavailable Unavailable Trisha Hubbard MD Primary Care Provider [phone] Trisha Hubbard MD Unavailable [phone] Encounter Details Date Type Department Care Team (Late st Contact Info) Description 05/15/2020 Ancillary Orders [facility],Outside Imaging [address] [place] [address] System, Provider Not In, PhD [address] [address] Social History Tobacco Use Types Packs/Day Years [...] documented as of this encounter Results * CT Abdomen/Pelvis Outside [...] Time PHQ-2 Depression Total Score: 0 10/22/19 19 8:42 AM EDT documented as of this encounter Care Teams Spooling Machine Operator Relationship Specialty Start Date End Date Trisha Hubbard MD [address] [place] [address] PCP - General Internal Medicine 03/17/18 Jeffrey Sung MD [address] [place] [address] Historical LMR Provider 12/25/16 2 Adam Klein MD [address] [place] [address] Historical LMR Provider 12/25/16 03/17/21 Francisco Javier Holcomb MD [address] [place] [address] Historical LMR Provider 12/25/16// 2 Adelso Anderson MD [address] [facility] [address] [place] [address] Gastroenterology 03/15/18 Marco Antonio Noriega MD Ophthalmology 03/15/18 Trisha Hubbard MD [address] [place] [address], [address] [place] [address] [email or web address] Insurance Assigned Provider 06/14/23 documented as of this encounter Additional Source Comments The information contained in this document represents components of the legal health record. It is not the complete legal health record.[facility]
--- OUTSIDE RECORDS SUMMARY | 2024-11-20 08:29 | XMS_ITS | Clinical Summary ---
Author Organization [facility] Address [address] [place] [address] Phone Care Team Providers Care Blasting Contract Miner Name Role Phone Adelso Anderson MD Unavailable [phone] Marco Antonio Noriega MD Unavailable Unavailable Trisha Hubbard MD Primary Care Provider [phone] Trisha Hubbard MD Unavailable [phone] Allergies Active Allergy Reactions Criticality Noted Date Comments Phenytoin Sodium Extended Nausea and/or Vomiting 03/15/2018 Latex, Natural Rubber Hives 12/20/2019 Nitrofurantoin Monohyd/M-Cryst GI Upset 11/07/2020 Nitrofurantoin Unknown 11/07/2020 Other Rash Low 09/18/2016 Norwegian oil Diazepam Nausea and/or Vomiting 12/20/2019 Medications CHOLECALCIFERO L, VITAMIN D3, ORAL Dose: Not available; Form: Not available; Route: PO; Frequency: Not available; Directions: Not available; Details: Dispense: Capsule(s); Date: 05/10/2014 5 Active CYANOCOBALAMIN , VITAMIN B-12, (VITAMIN B12 ORAL) Take 500 mg by mouth. Active Bifidobacteriu m infantis 4 mg Cap Active cranberry 500 mg Cap Take 500 MG FE by mouth. Active flaxseed oiL 1,000 mg Cap Take 1 capsule (1,000 mg total) by mouth daily. 90 capsule 3 3 Active fluticasone propionate (FLONASE) 50 mcg/actuation nasal spray 1 spray by Nasal route daily. 50 mL 3 3 Active pimecrolimus (ELIDEL) 1 % cream Apply topically 2 (two) times a day. 30 g 2 3 Active polyethylene glycol (MIRALAX) 17 gram/dose powder Take 17 g by mouth daily. 17 g 3 3 Active desonide (DESOWEN) 0.05 % creamIndicatio ns:for out breaks on the face Apply topically 2 (two) times a day. Indications: for out breaks on the face 30 g 2 3 Active estradioL (ESTRACE) 0.01 % (0.1 mg/gram) vaginal creamIndicatio ns:Menopausal vaginal dryness PLACE VAGINALLY 2 TIMES A WEEK DIRECTED 127.5 g 3 4 Active clobetasol (TEMOVATE) 0.05 % ointmentIndica tions:Menopaus al vaginal dryness APPLY TOPICALLY DAILY (VAGINALLY) 30 g 11 4 Active DENTA 5000 PLUS 1.1 % Crea BRUSH ON TEETH ONCE DAILY, SPIT BUT DO NOT RINSE 5 Active latanoprost (XALATAN) 0.005 % ophthalmic solution Place 1 drop into each eye nightly at bedtime. 5 Active sulfamethoxazo le-trimethopri m (BACTRIM DS) 800-160 mg per tablet Take 1 tablet (160 mg of trimethoprim total) by mouth 2 (two) times a day for 5 days. 10 tablet 5 11/03/19 fosfomycin (MONUROL) 3 gram PackIndication s:Urinary tract infection Take 1 packet (3 g total) by mouth once for 1 dose. 1 packet 5 11/02/19 Active Problems Problem Noted Date Diagnosed Date Chronic midline low back pain without sciatica 0 10/14/2022 Assessment & Plan (10/14/2022 11:31 AM EDT): We reviewed her CT from 2019 which shows scoliosis and degenerative changes. Advised her it is ok to continue Pilates and acupuncture. She can also take acetaminophen nightly and then take another dose when she wakes overnight. Discussed signs/symptoms that would warrant reevaluation. 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 Assessment & Plan (06/06/2022 9:53 PM EDT): Will get updated BMP. Hyponatremia 01/10/2020 Assessment & Plan (06/25/2024 4:56 PM EDT): Orders: TSH with reflex; Future Renal panel; Future Osmolality, serum; Future Sodium, random urine; Future Assessment & Plan (06/11/2023 10:19 PM EDT): This has been stable. Lumbar stenosis 10/21/2018 Tinnitus 05/13/2014 Overview (02/14/2015): Tinnitus Hearing loss 05/13/2014 Overview (02/14/2015): Hearing loss Chronic sinusitis Burning tongue Scoliosis Assessment & Plan (06/11/2023 10:24 PM EDT): She has back pain from this. Will continue to monitor. IBS (irritable colon syndrome) Assessment & Plan (06/11/2023 10:25 PM EDT): She follows with Dr. Kent for management of her IBS. Resolved Problems Problem Noted Date Diagnosed Date Resolved Date Long COVID 06/06/2022 06/11/2023 Overview (06/06/2022): Manifested by GI changes, more frequent BMs. Assessment & Plan (06/06/2022 9:55 PM EDT): Manifested with changes in bowel movement frequency. Will continue to monitor. Weight loss, abnormal 12/17/20192021 Encounters Date Type Department Care Team Description 10/28/2024 8:30 AM EDT Office Visit [facility] [address] [place] [address] Dr Blanco VERO [id number] Vishnu Briggs DO Recurrent UTI (Primary Dx) 10/27/2024 11:23 AM EDT - 10/27/2024 11:59 PM EDT Hospital Encounter [facility] [address] [place] [address] Trisha Hubbard MD Discharge Disposition: Home or Self Care 10/04/2024 10:45 AM EDT Office Visit [facility] [address] [place] [address] Nader Davila PA-C Jammed interphalangeal joint of finger of left hand, initial encounter (Primary Dx); Pain in finger of left hand 10/04/2024 10:06 AM EDT - 10/04/2024 11:59 PM EDT Hospital Encounter [address] [address] Nader Davila, JHONATAN Discharge Disposition: Home or Self Care 09/03/2024 4:00 PM EDT - 09/03/2024 11:59 PM EDT Hospital Encounter [facility] [address] [place] [address] Trisha Hubbard MD Discharge Disposition: Home or Self Care from Last 3 Months Immunizations Immunization Administration Dates Next Due COVID-19 (Pre-12/30) Pfizer Vaccine, mRNA, PF 04/21/2020,03/31/2020 Influenza High-Dose Quadriva lent Preservative Free IM 11/19/2022,11/19/2021,12/04/2020 Influenza High-Dose Trivalen t Preservative Free IM 11/24/2023,11/19/2021 Influenza Quadrivalent Adjuv anted Preservative Free IM 10/29/2019 Pneumococcal polysaccharide PPSV23 03/10/2011 RSV Vaccine (monovalent, adjuvanted) 01/02/2023 Td (adult),2 Lf Tetanus Toxo id, PF, Adsorbed 06/05/2022,03/10/2009 Tdap 03/10/2012 Zoster live 03/10/2010 Zoster recombinant 06/08/2017 Family History Medical History Relation Comments No Known Problems Brother Hearing loss Daughter 1 Sinusitis Daughter 1 Thyroid cancer Daughter 2 MRI neck picked up a nodule, localized papillary CV disease Father Coronary artery disease Father Heart attack Father Kevin's disease Maternal Grandmother Alzheimer's disease Mother Dementia Mother Osteoporosis Mother Relation Status Comments Brother Alive Daughter 1 Alive Daughter 2 Alive Daughter 3 Alive Father (Age 66) Maternal Grandmother Mother (Age 91) Social History Tobacco Use Types Packs/Day Years Used Date Smoking Tobacco: Never Smokeless Tobacco: Never Tobacco Cessation:Counseling Given: Not Answered Alcohol Use Standard Drinks/Week Comments Not Currently [...] is your housing situation today? I have susaan farris 05/30/2021 How many times have you [...] file Not on file Not on file Last Filed Vital Signs Vital Sign Reading Time Taken Comments Blood Pressure 108/62 10/28/2024 8:27 AM EDT Pulse 60 10/28/2024 8:27 AM EDT Temperature 35.9 C (96.6 F) 10/28/2024 8:27 AM EDT Respiratory Rate 16 10/06/2020 2:52 PM EDT Oxygen Saturation 96% 10/28/2024 8:27 AM EDT Inhaled Oxygen Concentration - - Weight 47.2 kg (104 lb) 10/28/2024 8:27 AM EDT S elf-report Height 154.9 cm (5' 1 ) 06/11/2023 10:31 AM EDT Body Mass Index 19.65 06/11/2023 10:31 AM EDT Plan of Treatment Health Maintenance Due Date Last Done Comments OSTEOPOROSIS SCREENING INITIAL (ONE-TIME) 2006 PNEUMOCOCCAL VACCINES (50+ years) (2 of 2 - PCV) 03/10/2012 03/10/2011 ZOSTER VACCINES (3 of 3) 08/03/2017 06/08/2017, 03/2010 INFLUENZA VACCINE (#1) 2024 , 11/19/2022, 11/19/2022, Additional history exists DEPRESSION SCREENING 06/16/2025 06/16/2024 Adult Td,Tdap Booster 06/05/2032 06/05/2022 , 03/10/2012, 03/10/2009 RSV VACCINE Completed 01/02/2023 COVID-19 VACCINE Completed 05/24/2024, , 05/12/2023, Additional history exists HEPATITIS A VACCINES Aged Out No long er eligible based on patient's age to complete this topic HIB VACCINES Aged Out No longer eligi ble based on patient's age to complete this topic MENINGOCOCCAL VACCINES (ACWY) Aged Out No longer eligible based on patient's age to complete this topic MENINGOCOCCAL VACCINES (B) Aged Out N o longer eligible based on patient's age to complete this topic Medical Devices Not on file Procedures Procedure Name Priority Date/Time Associated Diagnosis Comments URINE SEDIMENT Routine 10/27/2024 11:23 AM EDT URINALYSIS W/REFLEX URINE CULTURE Routine 10/27/2024 11:23 AM EDT Dysuria URINE CULTURE Routine 10/27/2024 11:23 AM EDT XR FINGER 2 OR MORE VIEWS (LEFT) Routine 10/04/2024 10:13 AM EDT Pain in finger of left hand URINE SEDIMENT Routine 09/03/2024 4:15 PM EDT URINALYSIS W/REFLEX URINE CULTURE Routine 09/03/2024 4:15 PM EDT Dysuria URINE CULTURE Routine 09/03/2024 4:15 PM EDT from Last 3 Months Results * (ABNORMAL) Urinalysis w/reflex Urine Culture (10/27/2024 11:23 AM EDT) Only the most recent of2 resultswithin the time period is included. COLOR [place](A) Yellow [facility] CLARITY HAZY [facility] GLUCOSE Trace(A) Negative [facility] BILI Negative Negative [facility] KETONES Trace(A) Negative [facility] SPECIFIC GRAVITY 1.015 1.005 - 1.030 [facility] BLOOD 2+(A) Negative [facility] PH 5.5 5.0 - 8.0 [facility] Protein-UA 2+(A) Negative [facility] NITRITE Positive(A) Negative [facility] Leukocyte esterase, ur 2+(A) Negative [facility] Urine (Urine) 10/27/2024 11: 23 AM EDT 10/27/2024 11:55 AM EDT Trisha Hubbard MD URINE ORDERABLES Final Resu lt Performing Organization Address City/[facility] Co de Phone Number [address] [address] * (ABNORMAL) Urine Culture (10/27/2024 11:23 AM EDT) Only the most recent of2 resultswithin the time period is included. Special Requests None Reflexed from [id number] 10/27/2024 2:51 PM EDT [facility] Urine Culture >100,000 colony forming units per mL MIXED PEPPER (3 OR MORE COLONY TYPES) Culture indicates contamination . Please resubmit if necessary.(A) 10/31/2024 8:45 AM EDT [facility] Urine 10/27/2024 11:2 3 AM EDT 10/27/2024 11:55 AM EDT Trisha Hubbard MD MICROBIOLOGY - GENERAL ORDE RABLES Final Result Performing Organization Address [facility] Co de Phone Number [address] [address] * (ABNORMAL) Urine sediment (10/27/2024 11:23 AM EDT) Only the most recent of2 resultswithin the time period is included. WBC TOO NUMEROUS TO COUNT(A) NONE SEEN /hpf [facility] RBC 50-100(A) NONE SEEN /hpf [facility] URINE EPITHELIAL 0-4(A) NONE SEEN [facility] MUCUS 1+(A) NONE SEEN /hpf [facility] BACTERIA 2+(A) NONE SEEN /hpf [facility] 10/27/2024 11:2 3 AM EDT 10/27/2024 11:55 AM EDT Trisha Hubbard MD URINE ORDERABLES Final Resu lt [facility] [address] [place] [address] * XR FINGER 2 OR MORE VIEWS (LEFT) (10/04/2024 10:13 AM EDT) Narrative SYSTEMGENERATED, DOCUMENTATION - 10/04/2024 10:13 AM EDT This image report has been auto-finalized and has not been read by a Radiologist. Interpretation has been included in the provider encounter note for this date of service. Nader Davila PA-C IMG XR UPPER EXTREMITY Final Result from Last 3 Months Insurance MEDICARE PART A & B [employer] MEDEX SUPPLEMENT MEDICARE PART A & B [employer] MEDEX SUPPLEMENT MEDICARE PART A & B [employer] MEDEX SUPPLEMENT MEDICARE PART A & B MEDEX SUPPLEMENT MEDICARE PART A & B [employer] MEDEX SUPPLEMENT MEDICARE PART A & B [employer] MEDEX SUPPLEMENT MEDICARE PART A & B [employer] MEDEX SUPPLEMENT MEDICARE PART A & B [employer] MEDEX SUPPLEMENT MEDICARE PART A & B [employer] MEDEX SUPPLEMENT Care Teams Blasting Contract Miner Relationship Specialty Start Date End Date Trisha Hubbard MD [address] [place] [phone] PCP - General Internal Medicine 03/17/18 Adelso Anderson MD [address] [place] [address] Drive [address] [place] [address] Gastroenterology 03/15/18 Marco Antonio Noriega MD Ophthalmology 03/15/18 Trisha Hubbard MD [address] [place] [phone] Insurance Assigned Provider 06/14/23 Additional Source Comments The information contained in this document represents components of the legal health record. It is not the complete legal health record.[facility]
--- OUTSIDE RECORDS SUMMARY | 2024-11-20 08:29 | XMS_ITS | Encounter Summary ---
Author Organization [employer] [facility] Address [address] [place] [address] Phone Care Team Providers Care Geospatial Engineer Name Role Phone Jeffrey Sung MD Unavailable [phone] Adam Klein MD Unavailable [phone] Francisco Javier Holcomb MD Unavailable [phone] Adelso Anderson MD Unavailable [phone] Marco Antonio Noriega MD Unavailable Unavailable Trisha Hubbard MD Primary Care Provider [phone] Trisha Hubbard MD Unavailable [phone] Encounter Details Date Type Department Care Team (Latest Contact Info) Description 02/17/2020 Transcribe Orders [address] [place] [address] Terrell Thomas MD [address] [place] [address] [email or web address] Hyponatremia (Primary Dx) Social History Tobacco Use Types [...] documented as of this encounter Results * Sodium, random urine (02/17/2020 7:32 AM EST) URINE SODIUM 55 mmol/L [facility] Urine (Urine) 02/17/2020 7:3 2 AM EST 02/17/2020 7:36 AM EST us Terrell Thomas MD URINE ORDERABLES Final Result Performing Organization Address [facility] Phone Number [address] [address] * Creatinine, random urine (02/17/2020 7:32 AM EST) URINE CREATININE 61 mg/dL [facility] Urine (Urine) 02/17/2020 7:3 2 AM EST 02/17/2020 7:36 AM EST us Terrell Thomas MD URINE ORDERABLES Final Result Performing Organization Address [facility] Phone Number [address] [address] * (ABNORMAL) Osmolality, serum (02/17/2020 7:32 AM EST) OSMOLALITY 279(L) 289 - 308 mOsm/kg water [facility] Blood 02/17/2020 7:32 AM EST 02/17/2020 7:36 AM EST us Terrell Thomas MD LAB BLOOD ORDERABLES Final Resul t Performing Organization Address [facility] Phone Number [address] [address] * Osmolality, Random Urine (02/17/2020 7:32 AM EST) URINE OSMOLALITY 562 mOsm/kg water [facility] Urine (Urine) 02/17/2020 7:3 2 AM EST 02/17/2020 7:36 AM EST us Terrell Thomas MD URINE ORDERABLES Final Result Performing Organization Address [facility] de Phone Number [address] [address] * Uric acid (02/17/2020 7:32 AM EST) URIC ACID 3.9 2.4 - 7.0 mg/dL [facility] Blood 02/17/2020 7:32 AM EST 02/17/2020 7:36 AM EST us Terrell Thomas MD LAB BLOOD ORDERABLES Final Resul t Performing Organization Address [facility] de Phone Number [address] [address] * (ABNORMAL) Renal panel (02/17/2020 7:32 AM EST) SODIUM 133 133 - 146 mmol/L [facility] POTASSIUM 4.1 3.3 - 5.1 mmol/L [facility] CHLORIDE 97 96 - 108 mmol/L [facility] CO2 26 21 - 35 mmol/L [facility] GLUCOSE 90 70 - 99 mg/dL [facility] BUN 18 6 - 19 mg/dL [facility] CREATININE 0.40(L) 0.5 - 1.5 mg/dL [facility] CALCIUM 9.6 8.4 - 10.3 mg/dL [facility] PHOSPHORUS 3.9 2.7 - 4.5 mg/dL [facility] ALBUMIN 4.3 3.9 - 4.8 g/dL [facility] EGFR 100 >59 mL/min/1.7 3m2 [facility] Comment:Estimated glomerular filtration rate calculated using the CKD-EPI equation. ANION GAP 14 10 - 20 mmol/L [facility] Blood 02/17/2020 7:32 AM EST 02/17/2020 7:36 AM EST us Terrell Thomas MD LAB BLOOD ORDERABLES Final Resul t [facility] [address] [place] [address] documented in this encounter Visit Diagnoses Diagnosis Hyponatremia- Primary Hyposmolality and/or hyponatremia documented in this encounter Additional Health Concerns Infection Onset Date Last Indicated Resolved Time CoV-Exposed Comment:Recent close contact 02/25/2020 02/25/2020 03/10/2020 1:24 AM EST CoV-Exposed Comment:Recent close contact documented in the COVID-19 PCR/PRO order 03/07/2021 03/09/2021 03/22/2021 1:[address] Assessment Noted Time PHQ-2 Depression Total Score: 0 10/22/19 8:42 AM EDT documented as of this encounter Care Teams Geospatial Engineer Relationship Specialty Start Date End Date Trisha Hubbard MD [address] [place] [id number] PCP - General Internal Medicine 03/17/18 Jeffrey Sung MD [address] [place] [address] Historical LMR Provider 12/25/16 2 Adam Klein MD [address] [address] Historical LMR Provider 12/25/16 03/17/21 Francisco Javier Holcomb MD [address] [place] [address] Historical LMR Provider 12/25/16 2 Adelso Anderson MD [address] [place] [address] Gastroenterology 03/15/18 Marco Antonio Noriega MD Ophthalmology 03/15/18 Trisha Hubbard MD [address] [place] [address], [address] [place] [address] [email or web address] Insurance Assigned Provider 06/14/23 documented as of this encounter Additional Source Comments The information contained in this document represents components of the legal health record. It is not the complete legal health record.[facility]
== END 2024-11-20 08:24 | disposition home or self-care (01) ==
LOC: HO.MAMMO 08:23
PROVIDERS: PCP Internal Medicine; Visit Provider Internal Medicine
DX: Z12.31 Encounter for screening mammogram for malignant neoplasm of breast (principal)
CPT/HCPCS: 77063; 77067

== ENCOUNTER → 2024-11-20 08:45 | Outpatient (BNV) | payer MEDICARE, SELFPAY | PROVIDERS: PCP Internal Medicine; Visit Provider Internal Medicine | DX: Z12.31 Encounter for screening mammogram for malignant neoplasm of breast (principal) | CPT/HCPCS: 77063; 77067 ==